=== PATIENT | female | born 1975 | race Caucasian/White ===

== ENCOUNTER 2022-08-22 14:51 | Outpatient (CLI) | payer OTHER, SELFPAY ==
--- NOTE | 2022-08-22 15:00 | CRLHL7_ITS ---
For Patients: As a result of the Century Cures Act, medical imaging exams and procedure reports are released immediately into your electronic medical record. You may view this report before your referring provider. If you have questions, please contact your health care provider. BILATERAL SCREENING MAMMOGRAM WITH COMPUTER-AIDED DETECTION TECHNIQUE: CC and MLO views were obtained. These mammographic images have been obtained using full-field digital technique. These mammographic images were interpreted with the benefit of computer-aided detection. COMPARISON FILM: 08/09/21, 07/20/20, 10/10/18 [place] FINDINGS: There are scattered areas of fibroglandular density IMPRESSION: There is no radiographic evidence for malignancy. ASSESSMENT: BI-RADS Category 2: Benign RECOMMENDATION: Routine screening mammogram in 1 year. A lay language report of this examination will be provided to the patient. Dilip Crespo M.D. Diagnostic Radiologist [email or web address] Transcribed: 3:37 [email or web address] talbot/Dictated by: Dilip Crespo MD @ 08/23/2022 9:47:00 AM (Electronically Signed)
== END 2022-08-22 14:52 | disposition home or self-care (01) ==
LOC: MAMMO 14:53
PROVIDERS: Visit Provider Physician Assistant Medical
DX: Z12.31 Encounter for screening mammogram for malignant neoplasm of breast (principal)
CPT/HCPCS: 77063; 77067

== ENCOUNTER 2023-08-02 07:12 | Outpatient (CLI) | payer OTHER, SELFPAY ==
--- NOTE | 2023-08-02 08:17 | W.ANESCHARGE ---
Anesthesia Charges Start Date/Time Anesthesia Start Date: 08/02/23 Anesthesia Start Time: 07:47 Stop Date/Time Anesthesia Stop Date: 08/02/23 Anesthesia Stop Time: 08:14
--- NOTE | 2023-08-02 11:42 | W.ANESCHARGE ---
Anesthesia Charges Start Date/Time Anesthesia Start Date: 08/02/23 Anesthesia Start Time: 07:47 Stop Date/Time Anesthesia Stop Date: 08/02/23 Anesthesia Stop Time: 08:14
== END 2023-08-02 07:13 | disposition home or self-care (01) ==
LOC: OP CLINIC 07:12
PROVIDERS: PCP Physician Assistant Medical; Visit Provider Surgery
DX: Z12.11 Encounter for screening for malignant neoplasm of colon (principal); D12.0 Benign neoplasm of cecum
CPT/HCPCS: 00811; 00812; 45385; 88305; J2704

== ENCOUNTER 2023-08-30 14:38 | Outpatient (CLI) | payer OTHER, SELFPAY ==
--- NOTE | 2023-08-30 15:00 | CRLHL7_ITS ---
For Patients: As a result of the Century Cures Act, medical imaging exams and procedure reports are released immediately into your electronic medical record. You may view this report before your referring provider. If you have questions, please contact your health care provider. BILATERAL SCREENING MAMMOGRAM WITH COMPUTER-AIDED DETECTION TECHNIQUE: CC and MLO views were obtained. These mammographic images have been obtained using full-field digital technique. These mammographic images were interpreted with the benefit of computer-aided detection. COMPARISON FILM: 08/22/22, 08/09/21, 07/20/20. FINDINGS: There are scattered areas of fibroglandular density. IMPRESSION: There is no radiographic evidence for malignancy. ASSESSMENT: BI-RADS Category 1: Negative RECOMMENDATION: Routine screening mammogram in 1 year. A lay language report of this examination will be provided to the patient. Dilip Crespo M.D. Diagnostic Radiologist [email or web address] SP/Dictated by: Dilip Crespo MD @ 08/31/2023 10:54:00 AM (Electronically Signed)
== END 2023-08-30 14:39 | disposition home or self-care (01) ==
LOC: MAMMO 14:39
PROVIDERS: PCP Physician Assistant Medical; Visit Provider Physician Assistant Medical
DX: Z12.31 Encounter for screening mammogram for malignant neoplasm of breast (principal)
CPT/HCPCS: 77067

== ENCOUNTER 2023-09-14 15:15 | Outpatient (CLI) | payer OTHER, SELFPAY | END 2023-09-14 15:16 | disposition home or self-care (01) | LOC: NFLDREF 09-17 06:03 | PROVIDERS: PCP Physician Assistant Medical; Referring Provider Physician Assistant Medical; Visit Provider Physician Assistant Medical | DX: I10 Essential (primary) hypertension (principal); E78.5 Hyperlipidemia, unspecified; R20.0 Anesthesia of skin; R73.01 Impaired fasting glucose; R79.89 Other specified abnormal findings of blood chemistry | CPT/HCPCS: 80053; 80061; 82607; 84443 ==

== ENCOUNTER 2024-12-25 15:04 | Outpatient (CLI) | payer OTHER, SELFPAY ==
--- NOTE | 2024-12-25 15:20 | CRLHL7_ITS ---
For Patients: As a result of the Century Cures Act, medical imaging exams and procedure reports are released immediately into your electronic medical record. You may view this report before your referring provider. If you have questions, please contact your health care provider. INDICATION: BILATERAL SCREENING MAMMOGRAM, ASYMPTOMATIC 49 Y/O FEMALE COMPARISON: 08/30/2023, 08/22/2022, 08/09/2021 TECHNIQUE: Digital mammogram in CC and MLO projections including computer-aided detection (CAD) and tomosynthesis. BREAST COMPOSITION: There are scattered areas of fibroglandular density. FINDINGS: No suspicious findings. ASSESSMENT: BI-RADS 1 Negative RECOMMENDATION: Annual screening mammogram. A lay language report of this examination will be provided to the patient. Dictated by: Dilip Crespo MD @ 12/26/2024 09:06:55 (Electronically Signed)
== END 2024-12-25 15:05 | disposition home or self-care (01) ==
LOC: MAMMO 15:05
PROVIDERS: PCP Physician Assistant Medical; Visit Provider Physician Assistant Medical
DX: Z12.31 Encounter for screening mammogram for malignant neoplasm of breast (principal)
CPT/HCPCS: 77063; 77067